=== PATIENT | female | born 1960 | race African-American/Black ===

== ENCOUNTER 2017-06-26 15:16 | Emergency (ER) | payer MEDICAID ==
[~2017-06-26] VITALS: Ht 160 cm; Wt 73.5 kg
[2017-06-26 15:42] VITALS: BP 138/89
[2017-06-26] MEDS ORDERED: Promethazine/Codeine 5ml UD ORAL ONE (16:00)
[2017-06-26] MEDS ORDERED: Albuterol ud Inhalation HHN SCH (16:00)
[2017-06-26] MEDS ORDERED: Ipratropium 0.02% Inh Soln 2.5ml UD HHN ONE (16:00)
--- NOTE | 2017-06-26 17:42 | Emergency Room Report ---
History of Present Illness General Chief Complaint: Skin Rash/Abscess Source: Patient Present Illness HPI 56-year-old female presents to the emergency department complaining of productive cough x3 days with exacerbation of her asthma. Patient also reports painful non-itchy rash under both breasts very patient denies fevers she reports chills. Denies sore throat, ear pain, high fevers, lethargy, neck pain/ stiffness, irritability, photophobia dehydration, N/V/D. Denies Cp, Palpitations , LOC, AMS, seizures, paresthesias, or changes in Hearing or vision, no Sudden severe ELIZABETH. Denies lesions/rashes elsewhere on the body. Denies new medications or body washes or creams. Denies swelling of the lips, tongue , throat or airway. Denies wheezing, or shortness of breath. Denies recent travel, recent illness or ill contacts. denies blisters, oral lesions, or sloughing of the skin. did not receive flu vaccination this year. Allergies: Coded Allergies: No Known Allergies (Unverified , 06/26/17) Patient History Past Medical History: see triage record, asthma Past Surgical History: none Pertinent Family History: none Now: No Reviewed Nursing Documentation: PMH: Agreed, PSxH: Agreed Nursing Documentation-PMH Past Medical History: No History, Except For Hx Hypertension: Yes Hx Asthma: Yes Hx Diabetes: Yes Review of Systems All Other Systems: negative except mentioned in HPI Physical Exam Vital Signs Date Time Temp Pulse Resp B/P (MAP) Pulse Ox O2 Delivery O2 Flow Rate FiO2 06/26/17 15:32 99.0 87 18 138/89 97 Room Air 06/26/17 15:55 21 Sp02 EP Interpretation: reviewed, normal General Appearance: alert, GCS 15, non-toxic, mild distress Head: normocephalic, atraumatic ENT: hearing grossly normal, normal voice Neck: full range of motion Respiratory: chest non-tender, no respiratory distress, no accessory muscle use , speaking full sentences, wheezing Cardiovascular #1: regular rate, rhythm, normal capillary refill Musculoskeletal: back normal, gait/station normal, normal range of motion, non- tender Neurologic: alert, oriented x3, responsive, motor strength/tone normal, sensory intact, speech normal, grossly normal Psychiatric: judgement/insight normal Skin: normal color, warm/dry, well hydrated, rash - + RASH UNDER BREASTS: macerated in appearance with mild erythema. no blisters or vesicles. Lymphatic: no adenopathy Medical Decision Making PA Attestation Dr. cuello is my supervising Physician whom patient management has been discussed with. Diagnostic Impression: Primary Impression: Atypical pneumonia Additional Impression: Rash and nonspecific skin eruption ER Course 56-year-old female presents to the emergency department complaining of productive cough x3 days with exacerbation of her asthma. Patient also reports painful non-itchy rash under both breasts very patient denies fevers she reports chills. Denies sore throat, ear pain, high fevers, lethargy, neck pain/ stiffness, irritability, photophobia dehydration, N/V/D. Denies Cp, Palpitations , LOC, AMS, seizures, paresthesias, or changes in Hearing or vision, no Sudden severe ELIZABETH. Denies lesions/rashes elsewhere on the body. Denies new medications or body washes or creams. Denies swelling of the lips, tongue , throat or airway. Denies wheezing, or shortness of breath. Denies recent travel, recent illness or ill contacts. denies blisters, oral lesions, or sloughing of the skin. did not receive flu vaccination this year. Ddx considered but are not limited to URI, pneumonia, PE, strep pharyngitis, meningitis. Vital signs: Pt. is afebrile, the remaining VS are WNL H&PE are most consistent with URI in the presence of reactive airway and asthma exacerbation. evidence of bacterial infection at this time. + RASH UNDER BREASTS: macerated in appearance with mild erythema. no blisters or vesicles. ORDERS: none required at this time, the diagnosis is clinical ED INTERVENTIONS: -Albuterol Nebs x3 -Atrovent Neb x 1 -Cough Syrup DISCHARGE: At this time pt. is stable for d/c to home. Will provide printed patient care instructions, and any necessary prescriptions. Care plan and follow up instructions have been discussed with the patient prior to discharge. Last Vital Signs Date Time Temp Pulse Resp B/P (MAP) Pulse Ox O2 Delivery O2 Flow Rate FiO2 06/26/17 16:04 91 24 100 Room Air 21 06/26/17 15:42 99.0 138/89 Disposition: HOME, SELF-CARE Condition: Stable Scripts Guaifenesin (Guaifenesin) 1,200 Mg Tab.er.12h 1200 MG PO BID, #20 TAB Prov: Nicole Gunn 06/26/17 Codeine/Promethazine Hcl* (PROMETHAZINE-CODEINE SYRUP*) 118 Ml Syrup 5 ML ORAL Q6H Y for For Cough, #120 ML 0 Refills Prov: Nicole Gunn 06/26/17 Mupirocin Calcium (Bactroban) 15 Gm Cream..g. 1 APPLIC TOPIC THREE TIMES A DAY, #15 GM Prov: Nicole Gunn 06/26/17 Nystatin* (NYSTATIN*) 15 Gm Cream..g. 1 APPLIC TOPIC THREE TIMES A DAY, #15 GM Prov: Nicole Gunn 06/26/17 Ipratropium Jordan (ATROVENT HFA) 12.9 Gm Hfa.aer.ad 1 SPR IH Q6HR, #12.9 GM Prov: Nicole Gunn 06/26/17 Albuterol Sulfate* (ALBUTEROL SULFATE HHN*) 2.5 Mg/3 Ml Vial.neb 3 ML INH Q4H Y for Shortness of Breath, #30 EA Prov: Nicole Gunn 06/26/17 Patient Instructions: Acute Bronchitis, Knkk-[id number], Rash Additional Instructions: Take medications as directed. Follow up with a Primary Care Provider in 3-5 days, even if your symptoms have resolved. --Please review list of primary care clinics, if you do not already have a primary care provider Return sooner to ED if new symptoms occur, or current symptoms become worse. Do not drink alcohol, drive, or operate heavy machinery while taking Cough Syrup as this may cause drowsiness. - Please note that this Emergency Department Report was dictated using Bulbcement mixer technology software, occasionally this can lead to erroneous entry secondary to interpretation by the dictation equipment. Nicole Gunn Jun 26, 2017 17:42
[2017-06-26] MEDS ORDERED: PROMETHAZINE-C118 M1 ORAL (17:46)
[2017-06-26] MEDS ORDERED: NYSTATIN15 GM TOPIC (17:46)
[2017-06-26] MEDS ORDERED: GUAIFENESIN1200 MG PO (17:46)
[2017-06-26] MEDS ORDERED: ATROVENT HFA12.9 GM IH (17:46)
[2017-06-26] MEDS ORDERED: ALBUTEROL2.5 MG/3 M INH (17:46)
[2017-06-26] MEDS ORDERED: BACTROBAN CR1 APPLIC TOPIC (17:46)
[2017-06-26 18:00] VITALS: BP 138/89
[2017-06-27] MEDS ORDERED: ALBUTEROL SULF8.5 GM INH (15:20)
== END 2017-06-26 18:19 | disposition home or self-care (01) ==
LOC: EMR 18:02
DX: J18.9 Pneumonia, unspecified organism (principal); R21 Rash and other nonspecific skin eruption; E11.9 Type 2 diabetes mellitus without complications; I10 Essential (primary) hypertension; J45.909 Unspecified asthma, uncomplicated
CPT/HCPCS: 94640; 94664; 99284

== ENCOUNTER 2017-11-30 00:06 | Emergency (ER) | payer MEDICAID ==
[~2017-11-30] VITALS: Ht 160 cm; Wt 72.6 kg
[~2017-11-30 00:06] MED LIST: ALBUTEROL SULF8.5 GM INH; ALBUTEROL2.5 MG/3 M INH; ATROVENT HFA12.9 GM IH; BACTROBAN CR1 APPLIC TOPIC; GUAIFENESIN1200 MG PO; NYSTATIN15 GM TOPIC; PROMETHAZINE-C118 M1 ORAL
[2017-11-30 00:23] VITALS: BP 98/76
[2017-11-30] MEDS ORDERED: Ipratropium 0.02% Inh Soln 2.5ml UD HHN ONE ×2 (00:30→03:00)
[2017-11-30] MEDS ORDERED: Albuterol ud Inhalation HHN ONE ×2 (00:30→03:00)
--- NOTE | 2017-11-30 00:40 | Emergency Room Report ---
History of Present Illness General Chief Complaint: Asthma Source: Patient Present Illness HPI Patient presents with complaints of shortness of breath and cough Reports that she was recently seen by her primary physician for flulike symptoms As the cough has persisted she had been using her inhaler however is not having significant improvement Denies any chest pain she does have some shortness of breath increased with cough denies any pleurisy Denies any recent travel Allergies: Coded Allergies: No Known Allergies (Unverified , 06/26/17) Patient History Past Medical History: see triage record Pertinent Family History: none Last Menstrual Period: n/a Reviewed Nursing Documentation: PMH: Agreed; PSxH: Agreed Nursing Documentation-PMH Past Medical History: No History, Except For Hx Hypertension: Yes Hx Asthma: Yes Hx Diabetes: Yes Review of Systems All Other Systems: negative except mentioned in HPI Physical Exam Vital Signs Date Time Temp Pulse Resp B/P (MAP) Pulse Ox O2 Delivery O2 Flow Rate FiO2 11/30/17 00:18 97.9 93 16 98/76 100 Room Air 97.9 Sp02 EP Interpretation: reviewed, normal General Appearance: no apparent distress Head: normocephalic, atraumatic Eyes: bilateral eye PERRL, bilateral eye EOMI ENT: hearing grossly normal, normal pharynx, TMs + canals normal, uvula midline Neck: full range of motion, supple, no meningismus, no bony tend Respiratory: no respiratory distress, no retraction, no accessory muscle use, wheezing - Both lower lobes Cardiovascular #1: normal peripheral pulses, regular rate, rhythm, no edema, no gallop, no JVD, no murmur Gastrointestinal: normal bowel sounds, non tender, soft, no mass, no organomegaly, non-distended, no guarding, no hernia, no pulsatile mass, no rebound Genitourinary: no CVA tenderness Musculoskeletal: normal inspection Neurologic: oriented x3, responsive, skip load driver III-XII nml as tested, motor strength/ tone normal, sensory intact Psychiatric: mood/affect normal Skin: normal color, no rash, warm/dry, palpation normal Lymphatic: normal inspection, no adenopathy Medical Decision Making Diagnostic Impression: Primary Impression: Pneumonia Additional Impression: Asthma attack ER Course Patient has clinical symptoms and signs consistent with atypical pneumonia X-ray had shown some increased right-sided perihilar fullness She has done significantly better with breathing treatment At this time placed on Levaquin On repeat evaluation remains hemodynamically stable and appropriate for initial conservative outpatient trial Chest X-Ray Diagnostic Results Chest X-Ray Diagnostic Results : Chest X-Ray Ordered: Yes # of Views/Limited/Complete: 1 View Indication: Shortness of Breath EP Interpretation: Yes Interpretation: no effusion, no pneumothorax, other - Right-sided Parahilar fullness Impression: Other - Right-sided perihilar fullness possible rotation Electronically Signed by: Ochoa Harris DO Last Vital Signs Date Time Temp Pulse Resp B/P (MAP) Pulse Ox O2 Delivery O2 Flow Rate FiO2 11/30/17 00:23 97.9 91 19 98/76 100 Room Air 97.9 Status: improved Disposition: HOME, SELF-CARE Condition: Improved Scripts Dextromethorphan Hb/Doxylamine (ROBITUSSIN NIGHTTIME COUGH DM) 237 Ml Liquid 10 ML PO QHS for 7 Days, ML Prov: Ochoa Harris DO 11/30/17 Albuterol Sulfate* (ALBUTEROL SULFATE MDI*) 8.5 Gm Hfa.aer.ad 2 PUFF INH Q6H, #1 EA 0 Refills Prov: Ochoa Harris DO 11/30/17 Levofloxacin* (LEVAQUIN*) 750 Mg Tablet 750 MG ORAL DAILY for 7 Days, TAB Prov: Ochoa Harris DO 11/30/17 Additional Instructions: Patient is provided with the discharge instructions notified to follow up with primary doctor in the next 2-3 days otherwise return to the er with any worsening symptoms. Please note that this report is being documented using Speak[employer] technology. This can lead to erroneous entry secondary to incorrect interpretation by the dictating instrument. Ochoa Harris DO Nov 30, 2017 00:40
[2017-11-30] MEDS ORDERED: Albuterol ud Inhalation ONE (00:43)
[2017-11-30] MEDS ORDERED: Promethazine/Codeine 5ml UD ORAL ONE (00:45)
[2017-11-30] MEDS ORDERED: ALBUTEROL SULF8.5 GM INH (03:29)
[2017-11-30] MEDS ORDERED: LEVAQUIN750 MG ORAL (03:29)
[2017-11-30 03:35] VITALS: BP 154/79
[2017-11-30] MEDS ORDERED: ROBITUSSIN NIG237 ML PO (03:41)
[2017-11-30 03:43] VITALS: BP 154/79
--- NOTE | 2017-11-30 11:35 | Diagnostic Imaging Report ---
Indication: Dyspnea Comparison: None A single view chest radiograph was obtained. Findings: Cardiomediastinal appearance is within normal limits for age. Pulmonary vascularity is appropriate. The diaphragmatic contour is smooth and costophrenic angles are sharp. No pleural effusions are identified. The bones are unremarkable. Impression: No acute findings
== END 2017-11-30 03:43 | disposition home or self-care (01) ==
LOC: EMR 00:37
DX: J18.9 Pneumonia, unspecified organism (principal); J45.909 Unspecified asthma, uncomplicated; I10 Essential (primary) hypertension; E11.9 Type 2 diabetes mellitus without complications
CPT/HCPCS: 71045; 94640; 94664; 99284; J7512

== ENCOUNTER 2018-05-30 15:20 | Emergency (ER) | payer MEDICAID ==
[~2018-05-30] VITALS: Ht 160 cm; Wt 72.6 kg
[~2018-05-30 15:20] MED LIST changes: +LEVAQUIN750 MG ORAL; +ROBITUSSIN NIG237 ML PO
--- NOTE | 2018-05-30 15:36 | NUR ---
ED Nurse Note: Pt came here w/ complaints of 10/10 neck pain. Non radiating. A + O x4. Skin warm to touch. Pt also noted to have a mass on the right rib cage area x 2 weeks. Hx of asthma.
[2018-05-30] MEDS ORDERED: Albuterol/Ipratropium 3ml neb HHN ONE (15:45)
--- NOTE | 2018-05-30 15:46 | Emergency Room Report ---
History of Present Illness General Chief Complaint: General Complaint Source: Patient Present Illness HPI 57-year-old female patient presents the ER with multiple complaints for the past week. Patient reports history of asthma, states difficulty breathing. Reports history of smoking. Denies chest pain. Reports right-sided rib pain. Denies acute injury or trauma. Denies history of heart attack or stroke. Denies fever. Reports small bump on right side of back, states is been present for a month. Reports painful. Denies drainage. Denies other acute aggravating or relieving factors. Also reports headache and sinus pain. Denies history of migraine. Reports worst headache of life. Reports feeling a "crick in neck". Denies acute injury or trauma. Reports "I think I slept weird ". Denies fever, chest pain. Denies tinnitus, vertigo. Denies vomiting or vision changes. denies recent travel. Allergies: Coded Allergies: No Known Allergies (Unverified , 06/26/17) Patient History Past Medical History: see triage record Last Menstrual Period: 2 YEARS AGO Now: No Reviewed Nursing Documentation: PMH: Agreed; PSxH: Agreed Nursing Documentation-PMH Past Medical History: No History, Except For Hx Hypertension: Yes Hx Asthma: Yes Hx Diabetes: Yes Review of Systems All Other Systems: negative except mentioned in HPI Physical Exam Vital Signs Date Time Temp Pulse Resp B/P (MAP) Pulse Ox O2 Delivery O2 Flow Rate FiO2 05/30/18 15:22 98.2 83 14 131/93 98 Sp02 EP Interpretation: reviewed, normal General Appearance: well appearing, no apparent distress, alert, GCS 15, non- toxic Head: normocephalic, atraumatic, other - no TTP over maxillary or frontal sinuses, no TTP over temporal artery Eyes: bilateral eye normal inspection, bilateral eye PERRL, bilateral eye EOMI ENT: hearing grossly normal, normal pharynx, no angioedema, normal voice, TMs + canals normal, uvula midline, moist mucus membranes Neck: full range of motion, no meningismus, no bony tend Respiratory: lungs clear, no rhonchi, no respiratory distress, no accessory muscle use, no wheezing, decreased breath sounds, speaking full sentences, other - Chest tender to palpation, no flail chest, no stridor, no defomrity, chest symmetrical Cardiovascular #1: regular rate, rhythm, no edema Gastrointestinal: non tender, soft, no mass, non-distended, no guarding, no rebound Genitourinary: no CVA tenderness Musculoskeletal: back normal, digits/nails normal, gait/station normal, normal range of motion, non-tender Neurologic: alert, oriented x3, responsive, director sales and trade marketing III-XII nml as tested, motor strength/tone normal, sensory intact, cerebellar normal, normal gait, speech normal, other - negative Kernig, negative Brudzinski Psychiatric: mood/affect normal Skin: no rash, other - No palpable mass, no erythema or edema Medical Decision Making PA Attestation Dr. Lucero is my supervising Physician whom patient management has been discussed with. Diagnostic Impression: Primary Impression: Asthma exacerbation Additional Impressions: Neck strain Headache ER Course Pt presents to ED c/o breathing difficulty, headache, neck pain. DDX considered but are not limited to asthma, viral URI, influenza, bronchitis, pneumonia, ICH, SAH, meningitis, sprain, strain, migraine, sinusitis, tension ELIZABETH , cluster ELIZABETH, temporal arteritis. Negative Kernig, negative Brudzinski, afebrile, low suspicion for meningitis. Low suspicion for PE per Well's criteria. VITAL SIGNS are WNL, patient is afebrile. Ordered breathing treatment and medication. ER COURSE Patient provided with prednisone Duoneb breathing treatment provided. Following treatment patient states no longer having difficulty with breathing. Patient is resting comfortably in no acute distress. Full ROM of neck, no meningismus, no TTP, no acute trauma, does not require xray , low suspicion for fracture. Likely muscular, will provide patient with muscle relaxant. Provided with lidocaine patch in the ER. Advised on rest, ice and heat. Followup with PCP for further treatment and referral. No palpable mass or cyst. No signs of infection. No fluctuance or induration, no signs of abscess, instructed patient to followup with PCP for further evaluation and treatment. CXR negative for acute disease, no signs of consolidation, does not require abx. will provide patient with cough medication at discharge. No rib deformity , no TPT, likely rib pain secondary to cough, advised to rest and take Tylenol for pain. CT head negative for acute disease. Provided with Ultram. Patient has family member driving home. Patient reports symptoms improved prior to discharge. Patient would not benefit from Tamiflu, symptoms present for greater than 3 days. Advised on rest, plenty of fluids, and Tylenol for pain symptoms. ER precautions given. DISCHARGE: -Rx given for Prednisone. -Rx provided for Albuterol MDI. -Rx provided for Tessalon Perles Rx provided for tylneol Rx provided for Robaxin At this time pt is stable for d/c to home. Patient is resting comfortably in no acute distress, nontoxic appearing, able to answer questions without difficulty. Patient to take medications as instructed Will provide with patient care instructions and any necessary prescriptions. Care plan and follow-up instructions provided. Patient instructed to follow-up with primary care provider in 3 - 5 days. Patient questions asked and answered. Patient reports understanding and agreement to treatment plan. ER precautions given. Patient instructed to return to ER immediately for any new or worsening of symptoms including but not limited to increasing SOB, persistent fever. - Please note that this Emergency Department Report was dictated using Alegríaaccounting consultant technology software, occasionally this can lead to erroneous entry secondary to interpretation by the dictation equipment. Chest X-Ray Diagnostic Results Chest X-Ray Diagnostic Results : Chest X-Ray Ordered: Yes # of Views/Limited/Complete: 1 View Indication: Chest Pain EP Interpretation: Yes PA Xray: Interpretation reviewed, by supervising MD, and agrees with findings. Interpretation: no consolidation, no effusion, no pneumothorax, no acute cardiopulmonary disease Impression: No acute disease GEE Irving PA-C CT/MRI/US Diagnostic Results CT/MRI/US Diagnostic Results : Imaging Test Ordered: CT head Impression negative Last Vital Signs Date Time Temp Pulse Resp B/P (MAP) Pulse Ox O2 Delivery O2 Flow Rate FiO2 05/30/18 15:22 98.2 83 14 131/93 98 Status: improved Disposition: HOME, SELF-CARE Condition: Stable Scripts Prednisone* (PREDNISONE*) 20 Mg Tablet 40 MG ORAL DAILY for 4 Days, #8 TAB Prov: Bonifacio Irving.A. 05/30/18 Albuterol Sulfate* (ALBUTEROL SULFATE MDI*) 8.5 Gm Hfa.aer.ad 2 PUFF INH Q6H, #1 INH 0 Refills Prov: Bonifacio Irving.A. 05/30/18 Methocarbamol* (ROBAXIN*) 500 Mg Tablet 500 MG PO TID, #21 TAB 0 Refills Prov: Bonifacio Irving.A. 05/30/18 Acetaminophen* (TYLENOL EXTRA STRENGTH*) 500 Mg Tablet 500 MG ORAL Q8H PRN for Prn Headache/Temp > 101, #30 TAB 0 Refills Prov: Bonifacio Irving 05/30/18 Benzonatate* (TESSALON PERLE*) 100 Mg Capsule 100 MG ORAL THREE TIMES A DAY, #15 PERLE Prov: Bonifacio Irving 05/30/18 Patient Instructions: Asthma Attack Prevention, Asthma, Acute Bronchospasm, General Headache Without Cause, [id number], Migraine Headache, [id number] Additional Instructions: Followup with primary care provider in 3 -5 days. Take medications as directed. Patient questions asked and answered. ER precautions given, patient instructed to return to ER immediately for any new or worsening of symptoms. Bonifacio Irving May 30, 2018 15:46
--- NOTE | 2018-05-30 15:59 | NUR ---
ED Nurse Note: RT currently giving breathing tx to pt.
--- NOTE | 2018-05-30 16:36 | NUR ---
ED Nurse Note: Pt went down to CT.
--- NOTE | 2018-05-30 16:39 | Diagnostic Imaging Report ---
Indication: Chest pain Technique: One view of the chest Comparison: 11/30/2017 Findings: No acute infiltrates, effusions, or congestion. Tortuous calcified aorta. Normal heart size. Upper mediastinum unremarkable. No significant interim change Impression: No acute process.
[2018-05-30 16:40] VITALS: BP 130/90
--- NOTE | 2018-05-30 16:44 | NUR ---
ED Nurse Note: Pt came back from CT.
--- NOTE | 2018-05-30 16:55 | Diagnostic Imaging Report ---
Indications: Head pain and sinus pain Technique: Spiral acquisitions obtained through the brain. Angled axial and coronal 5 x 5 mm slices were reconstructed. Total dose length product 1298.67 mGycm. CTDI vol(s) 70.38 mGy. Dose reduction achieved using automated exposure control Comparison: 07/23/2009 Findings: No acute intracranial hemorrhage or edema. No mass effect. No midline shift. Normal mortensen-white differentiation. Normal-sized ventricles and extra axial CSF spaces. Intact calvarium. The mastoids are clear. The sinuses are clear. No significant interim change Impression: Negative The CT scanner at [facility] is accredited by the [employer] and the scans are performed using protocols designed to limit radiation exposure to as low as reasonably achievable to attain images of sufficient resolution adequate for diagnostic evaluation.
[2018-05-30] MEDS ORDERED: TESSALON PERLE100 MG ORAL (16:59)
[2018-05-30] MEDS ORDERED: TAMIFLU75 MG ORAL (16:59)
[2018-05-30] MEDS ORDERED: TYLENOL EXTRA500 MG ORAL (16:59)
[2018-05-30] MEDS ORDERED: traMADol 50mg tab ORAL ONE (17:15)
[2018-05-30] MEDS ORDERED: ALBUTEROL SULF8.5 GM INH (17:24)
[2018-05-30] MEDS ORDERED: ROBAXIN500 MG PO (17:24)
[2018-05-30] MEDS ORDERED: PREDNISONE20 MG ORAL (17:24)
[2018-05-30 17:30] VITALS: BP 130/90
--- NOTE | 2018-05-30 17:30 | NUR ---
ED Nurse Note: Pt is clear to be discharged by ERMD. Discharge paper and prescription given, pt verbalized understanding of discharge instruction. Aox4, VSS. Wristband removed. Pt ambulated out with steady gait with all belongings.
== END 2018-05-30 17:30 | disposition home or self-care (01) ==
LOC: EMR 17:30
DX: J45.901 Unspecified asthma with (acute) exacerbation (principal); S16.1XXA Strain of muscle, fascia and tendon at neck level, initial encounter; X58.XXXA Exposure to other specified factors, initial encounter; Y92.9 Unspecified place or not applicable; R51 Headache; E11.9 Type 2 diabetes mellitus without complications; I10 Essential (primary) hypertension
CPT/HCPCS: 70450; 71045; 94640; 99284; J7512; J7620

== ENCOUNTER 2018-06-20 10:16 | Emergency (ER) | payer MEDICAID ==
[~2018-06-20] VITALS: Ht 160 cm; Wt 69.9 kg
[~2018-06-20 10:16] MED LIST changes: +PREDNISONE20 MG ORAL; +ROBAXIN500 MG PO; +TAMIFLU75 MG ORAL; +TESSALON PERLE100 MG ORAL; +TYLENOL EXTRA500 MG ORAL
--- NOTE | 2018-06-20 10:25 | NUR ---
ED Nurse Note: Pt came into the ER w/ complaints of asthma excaberation since Monday. Pt is having SOB upon speaking but sating at 100% on room air at bedside. Noted to have dry cough and smell of smoke coughin gfrom pt. Complaining of 7/10 bilateral rib pain due to coughing. A + O x4. Ambulatory. Skin warm to touch. Hx of asthma, HTN, DM.
[2018-06-20 10:28] VITALS: BP 148/89
--- NOTE | 2018-06-20 10:44 | NUR ---
ED Nurse Note: RT at the bedside to give breathing tx.
[2018-06-20] MEDS: Albuterol ud Inhalation HHN SCH ×6 (10:46→13:08)
[2018-06-20] MEDS: Ipratropium 0.02% Inh Soln 2.5ml UD HHN SCH ×6 (10:46→13:08)
--- NOTE | 2018-06-20 12:28 | NUR ---
ED Nurse Note: Xray at the bedside.
[2018-06-20] MEDS ORDERED: Promethazine/Codeine 5ml UD ORAL ONE (12:30)
--- NOTE | 2018-06-20 12:46 | Diagnostic Imaging Report ---
Indication: Dyspnea Comparison: 05/30/2018 A single view chest radiograph was obtained. Findings: Cardiomediastinal appearance is within normal limits for age. The lungs are clear. Pulmonary vascularity is appropriate. The diaphragmatic contour is smooth and costophrenic angles are sharp. No pleural effusions are identified. The bones are unremarkable. Impression: No acute findings
--- NOTE | 2018-06-20 12:54 | NUR ---
ED Nurse Note: RT at the bedside.
[2018-06-20 13:02] LABS: BASOPHILS % (AUTO) 0.4 % (0.0-2.0); EOSINOPHILS % (AUTO) 0.2 % (0.0-3.0); HEMATOCRIT 40.5 % (37.0-47.0); HEMOGLOBIN 13.1 G/DL (12.0-16.0); LYMPHOCYTES % (AUTO) 16.3 % (20.0-45.0); MEAN CORPUSCULAR VOLUME 97 FL (80-99); MONOCYTES % (AUTO) 3.5 % (1.0-10.0); NEUTROPHILS % (AUTO) 79.7 % (45.0-75.0); PLATELET COUNT 210 K/UL (150-450); RED BLOOD COUNT 4.17 M/UL (4.20-5.40); RED CELL DISTRIBUTION WIDTH 12.8 % (11.6-14.8); WHITE BLOOD COUNT 5.8 K/UL (4.8-10.8)
[2018-06-20 13:15] LABS: APPEARANCE,URINE CLEAR; BILIRUBIN, URINE NEGATIVE (NEGATIVE); COLOR,URINE PALE YELLOW; GLUCOSE, URINE (UA) 4+ (NEGATIVE); KETONES,URINE NEGATIVE (NEGATIVE); LEUKOCYTE ESTERASE ,URINE NEGATIVE (NEGATIVE); NITRITE,URINE NEGATIVE (NEGATIVE); PH,URINE 6 (4.5-8.0); PROTEIN,URINE NEGATIVE (NEGATIVE); UROBILINOGEN,URINE NORMAL MG/DL (0.0-1.0)
[2018-06-20 14:01] VITALS: BP 103/75
[2018-06-20 14:09] LABS: ANION GAP 16 mmol/L (5-15); BLOOD UREA NITROGEN 10 mg/dL (7-18); CALCIUM 9.6 MG/DL (8.5-10.1); CARBON DIOXIDE 21 MMOL/L (21-32); CHLORIDE 100 MMOL/L (98-107); CREATININE 0.9 MG/DL (0.55-1.30); POTASSIUM 3.6 MMOL/L (3.5-5.1); SODIUM 137 MMOL/L (136-145)
[2018-06-20 14:14] LABS: ALANINE AMINOTRANSFERASE 24 U/L (12-78); ALBUMIN/GLOBULIN RATIO 1.2 (1.0-2.7); ALKALINE PHOSPHATASE 132 U/L (46-116); ASPARTATE AMINO TRANSFERASE 15 U/L (15-37); BILIRUBIN,TOTAL 0.3 MG/DL (0.2-1.0)
[2018-06-20] MEDS ORDERED: AMOXICILLIN500 MG ORAL (14:41)
[2018-06-20] MEDS ORDERED: PREDNISONE20 MG ORAL (14:41)
[2018-06-20] MEDS ORDERED: ALBUTEROL SULF8.5 GM INH (14:41)
[2018-06-20] MEDS ORDERED: PROMETHAZINE-C118 M1 ORAL (14:41)
[2018-06-20 14:57] VITALS: BP 116/54
--- NOTE | 2018-06-20 14:58 | NUR ---
ED Nurse Note: Pt was supposed to be transferred but decided to go AMA. AMA papers signed by pt and ERMD. Discharge instructions given to pt. Verbalized understanding. Answered all questions. ID band and IV site removed. Left ER w/ all belongings and w/ a steady gait.
--- NOTE | 2018-06-20 15:54 | Emergency Room Report ---
History of Present Illness General Chief Complaint: Asthma Source: Patient Present Illness HPI 57-year-old female presents ED for evaluation. Complaining of cough and shortness of breath 4 days. History of asthma. She does not have an inhaler at this time. Cough is dry. States she does smoke. Denies fevers or chills. Denies chest pain. Denies sick contacts or recent travel. No other aggravating relieving factors. Denies any other associated symptoms Allergies: Coded Allergies: No Known Allergies (Unverified , 06/26/17) Patient History Past Medical History: DM, HTN, asthma Past Surgical History: none Pertinent Family History: none Social History: Reports: smoking; Denies: alcohol use, drug use Now: No Immunizations: UTD Reviewed Nursing Documentation: PMH: Agreed; PSxH: Agreed Nursing Documentation-PMH Past Medical History: No History, Except For Hx Hypertension: Yes Hx Asthma: Yes Hx Diabetes: Yes Review of Systems All Other Systems: negative except mentioned in HPI Physical Exam Vital Signs Date Time Temp Pulse Resp B/P (MAP) Pulse Ox O2 Delivery O2 Flow Rate FiO2 06/20/18 10:25 97.2 10 25 148/89 100 Room Air 06/20/18 10:28 100 Sp02 EP Interpretation: reviewed, normal General Appearance: no apparent distress, alert, GCS 15, non-toxic Head: normocephalic, atraumatic Eyes: bilateral eye normal inspection, bilateral eye PERRL ENT: hearing grossly normal, normal pharynx, no angioedema, normal voice Neck: full range of motion, supple/symm/no masses Respiratory: chest non-tender, decreased breath sounds, speaking full sentences , wheezing Cardiovascular #1: regular rate, rhythm, no edema Cardiovascular #2: 2+ carotid (R), 2+ carotid (L), 2+ radial (R), 2+ radial (L) , 2+ dorsalis pedis (R), 2+ dorsalis pedis (L) Gastrointestinal: normal bowel sounds, non tender, soft, non-distended, no guarding, no rebound Rectal: deferred Genitourinary: normal inspection, no CVA tenderness Musculoskeletal: back normal, gait/station normal, normal range of motion, non- tender Neurologic: alert, oriented x3, responsive, motor strength/tone normal, sensory intact, speech normal Psychiatric: judgement/insight normal, memory normal, mood/affect normal, no suicidal/homicidal ideation Reflexes: 3+ bicep (R), 3+ bicep (L), 3+ tricep (R), 3+ tricep (L), 3+ knee (R) , 3+ knee (L) Skin: normal color, no rash, warm/dry, well hydrated Lymphatic: no adenopathy Medical Decision Making Diagnostic Impression: Primary Impression: Asthma attack Qualified Codes: J45.901 - Unspecified asthma with (acute) exacerbation Additional Impression: Hyperglycemia ER Course Hospital Course 57-year-old female presents to ED complaining of cough, wheezing Differential diagnoses include: URI, bronchitis, asthma/COPD, pneumonia Clinical course Patient placed on stretcher. After initial history, physical exam reveals middle aged female in no acute distress. Bilateral TM unremarkable. No pharyngeal erythema. No tonsillar exudates. No lymphadenopathy. Mild wheezing noted on exam, no signs of respiratory distress or retractions. Patient given Prednisone and albuterol/atrovent treatment in ED After multiple treatments patient remains short of breath, coughing profusely. I do not believe patient can be safely discharged home at this time Labs ordered, additional breathing treatments, magnesium ordered Chest x-ray shows no infiltrate. EKG - NSR, no acute ischemic changes interpreted by me Patient states that she does not want to stay in the hospital but does not feel better. Still coughing. Understands the risks of leaving. Patient has competency to make her own decisions. Signed AMA form. I will provide her with prescriptions regardless Diagnosis - asthma attack, hyperglycemia Patient left AMA. Given prescriptions for albuterol, prednisone, cough medication, amoxicillin. Follow-up with PMD. Return to ED if symptoms recur or worsen Labs Test 06/20/18 12:40 White Blood Count 5.8 K/UL (4.8-10.8) Red Blood Count 4.17 M/UL (4.20-5.40) Hemoglobin 13.1 G/DL (12.0-16.0) Hematocrit 40.5 % (37.0-47.0) Mean Corpuscular Volume 97 FL (80-99) Mean Corpuscular Hemoglobin 31.5 PG (27.0-31.0) Mean Corpuscular Hemoglobin Concent 32.4 G/DL (32.0-36.0) Red Cell Distribution Width 12.8 % (11.6-14.8) Platelet Count 210 K/UL (150-450) Mean Platelet Volume 8.1 FL (6.5-10.1) Neutrophils (%) (Auto) 79.7 % (45.0-75.0) Lymphocytes (%) (Auto) 16.3 % (20.0-45.0) Monocytes (%) (Auto) 3.5 % (1.0-10.0) Eosinophils (%) (Auto) 0.2 % (0.0-3.0) Basophils (%) (Auto) 0.4 % (0.0-2.0) Urine Color Pale yellow Urine Appearance Clear Urine pH 6 (4.5-8.0) Urine Specific [place] 1.010 (1.005-1.035) Urine Protein Negative (NEGATIVE) Urine Glucose (UA) 4+ (NEGATIVE) Urine Ketones Negative (NEGATIVE) Urine Blood Negative (NEGATIVE) Urine Nitrite Negative (NEGATIVE) Urine Bilirubin Negative (NEGATIVE) Urine Urobilinogen Normal MG/DL (0.0-1.0) Urine Leukocyte Esterase Negative (NEGATIVE) Sodium Level 137 MMOL/L (136-145) Potassium Level 3.6 MMOL/L (3.5-5.1) Chloride Level 100 MMOL/L (98-107) Carbon Dioxide Level 21 MMOL/L (21-32) Anion Gap 16 mmol/L (5-15) Blood Urea Nitrogen 10 mg/dL (7-18) Creatinine 0.9 MG/DL (0.55-1.30) Estimat Glomerular Filtration Rate > 60 mL/min (>60) Glucose Level 393 MG/DL (74-106) Calcium Level 9.6 MG/DL (8.5-10.1) Total Bilirubin 0.3 MG/DL (0.2-1.0) Aspartate Amino Transf (AST/SGOT) 15 U/L (15-37) Alanine Aminotransferase (ALT/SGPT) 24 U/L (12-78) Alkaline Phosphatase 132 U/L (46-116) Total Protein 7.3 G/DL (6.4-8.2) Albumin 4.0 G/DL (3.4-5.0) Globulin 3.3 g/dL Albumin/Globulin Ratio 1.2 (1.0-2.7) Chest X-Ray Diagnostic Results Chest X-Ray Diagnostic Results : Chest X-Ray Ordered: Yes # of Views/Limited/Complete: 1 View Indication: Shortness of Breath EP Interpretation: Yes Interpretation: no consolidation, no effusion, no pneumothorax, no acute cardiopulmonary disease Impression: No acute disease Electronically Signed by: Electronically signed by Farhat Lee MD Last Vital Signs Date Time Temp Pulse Resp B/P (MAP) Pulse Ox O2 Delivery O2 Flow Rate FiO2 06/20/18 14:57 98.0 114 21 116/54 100 Room Air 06/20/18 14:01 21 Status: unchanged Disposition: AGAINST MEDICAL ADVICE Condition: Serious Scripts Amoxicillin* (AMOXIL*) 500 Mg Capsule 500 MG ORAL THREE TIMES A DAY, #21 CAP Prov: Farhat Lee MD 06/20/18 Codeine/Promethazine Hcl* (PROMETHAZINE-CODEINE SYRUP*) 118 Ml Syrup 5 ML ORAL Q6H PRN for For Cough, #118 ML 0 Refills Prov: Farhat Lee MD 06/20/18 Albuterol Sulfate* (ALBUTEROL SULFATE MDI*) 8.5 Gm Hfa.aer.ad 2 PUFF INH Q6H, #1 EA 0 Refills Prov: Farhat Lee MD 06/20/18 Prednisone* (PREDNISONE*) 20 Mg Tablet 40 MG ORAL DAILY, #10 TAB Prov: Farhat Lee MD 06/20/18 Referrals: NON PHYSICIAN (PCP) Patient Instructions: Asthma, Adult Farhat Lee MD Jun 20, 2018 15:53
--- NOTE | 2018-06-21 15:10 | Cardiology Report ---
APPROVED REPORT EKG Measurement Heart [id number] Sinus tachycardia Otherwise normal ECG
== END 2018-06-20 14:59 | disposition left against medical advice (07) ==
LOC: EMR 10:50 → CANBEDREQ 14:27 → EMR 14:59
DX: J45.901 Unspecified asthma with (acute) exacerbation (principal); E11.65 Type 2 diabetes mellitus with hyperglycemia; I10 Essential (primary) hypertension; Z53.21 Procedure and treatment not carried out due to patient leaving prior to being seen by health care provider
CPT/HCPCS: 36415; 71045; 80053; 81003; 85025; 87040; 93005; 94640; 94664; 99284; J7040; J7512

== ENCOUNTER 2020-02-19 14:52 | Emergency (ER) | payer MEDICAID ==
[~2020-02-19] VITALS: Ht 160 cm; Wt 71.7 kg
[~2020-02-19 14:52] MED LIST changes: +AMOXICILLIN500 MG ORAL; +PROMETHAZI6.25 MG/1 ORAL; +VENTOLIN HFA18 GM INH; +ZITHROMAX250 MG ORAL
[2020-02-19 15:42] VITALS: BP 140/90
[2020-02-19] MEDS ORDERED: Ketorolac 30mg Inj IM ONE (15:45)
--- NOTE | 2020-02-19 16:19 | Diagnostic Imaging Report ---
Indications: Reason For Exam: TRAUMA Technique: Spiral images obtained through the facial bones. No IV contrast utilized. Multiplanar reconstructions were generated.Total dose length product 343 mGycm. CTDIvol(s) 15 mGy. Dose reduction achieved using automated exposure control Comparison: none Findings: No acute fracture demonstrated. No worrisome sinus air-fluid levels. There is minimal left posterior ethmoid sinus disease. The optic globes and retroseptal orbits are unremarkable. The dentition is intact. The nasal septum is midline. The included cervical spine is unremarkable. Impression: No acute process Minimal sinus disease The CT scanner at [facility] is accredited by the [employer] and the scans are performed using protocols designed to limit radiation exposure to as low as reasonably achievable to attain images of sufficient resolution adequate for diagnostic evaluation.
--- NOTE | 2020-02-19 16:21 | Diagnostic Imaging Report ---
Indication: Reason For Exam: TRAUMA Technique: Spiral acquisitions obtained through the cervical spine. No IV contrast utilized. Multiplanar reconstructions were generated. Total dose length product 480 mGycm. CTDIvol(s) 20 mGy. Dose reduction achieved using automated exposure control. Comparison: 07/23/2009 Findings: Bony alignment is normal. Vertebral body heights are preserved. There is degenerative disc narrowing at C4-5. The remaining disc spaces are preserved. No acute fractures. No dislocations. At C2-3, there is mild narrowing of the left neural foramen due to uncinate hypertrophy. No significant disc bulge or protrusion or spinal stenosis. At C3-4, there is mild to moderate right, mild left neural foraminal narrowing. No significant disc bulge or protrusion or spinal stenosis. At C4-5, there is mild bilateral facet arthrosis. There is severe bilateral neural foraminal stenosis. No significant disc bulge or protrusion or spinal stenosis. At C5-6, there is mild left neural foraminal stenosis. There is facet arthrosis. At the remaining levels, no significant disc bulge or protrusion, spinal stenosis, or neural foraminal stenosis. There is facet arthrosis of the lower segments. The included extraspinal soft tissues are unremarkable. There are small peripheral bullae in the right lung apex. No significant interim change Impression: No acute bony trauma Degenerative changes, as detailed on a level by level basis above Incidental finding of right lung bullous changes The CT scanner at [facility] is accredited by the [employer] and the scans are performed using protocols designed to limit radiation exposure to as low as reasonably achievable to attain images of sufficient resolution adequate for diagnostic evaluation.
--- NOTE | 2020-02-19 16:23 | Diagnostic Imaging Report ---
Indications: Head trauma Technique: Spiral acquisitions obtained through the brain. Angled axial and coronal 5 x 5 mm slices were reconstructed. Total dose length product 990 mGycm. CTDI vol(s) 53 mGy. Dose reduction achieved using automated exposure control Comparison: 06/09/2018 Findings: No acute intracranial hemorrhage or edema. No mass effect nor midline shift. Normal mortensen-white differentiation. Normal size ventricles and extra axial CSF spaces. The calvarium is intact. The mastoids are clear. There is minimal left ethmoid sinus disease. Impression: Essentially unremarkable. Negative for acute intracranial bleed or mass effect Minimal left ethmoid sinus disease The CT scanner at [facility] is accredited by the [employer] and the scans are performed using protocols designed to limit radiation exposure to as low as reasonably achievable to attain images of sufficient resolution adequate for diagnostic evaluation.
[2020-02-19] MEDS ORDERED: Tylenol #3 tab (300mg/30mg) ORAL ONE (16:30)
--- NOTE | 2020-02-19 17:13 | Diagnostic Imaging Report ---
Indication: Reason For Exam: PAIN Technique: Noncontrast spiral acquisitions obtained through the bilateral hips. Multiplanar reconstructions were generated. Total dose length product 324 mGycm. CTDIvol(s) 8 mGy. Radiation dose was minimized using automated exposure control Comparison: none Findings: No acute fractures. No dislocations. Very slight increased attenuation of the subcutaneous fat of the hip regions bilaterally, left greater than right, as well as slight skin thickening on the left. Included pelvic viscera demonstrate colonic diverticulosis. The uterus is somewhat enlarged and contains calcifications. Impression: No acute bony trauma Slight increased attenuation of the bilateral hip region subcutaneous fat, could indicate mild contusions given stated clinical history Colonic diverticulosis The CT scanner at [facility] is accredited by the [employer] and the scans are performed using protocols designed to limit radiation exposure to as low as reasonably achievable to attain images of sufficient resolution adequate for diagnostic evaluation.
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
[2020-02-19] MEDS ORDERED: ROBAXIN-500MG ORAL (17:24)
[2020-02-19 17:32] VITALS: BP 144/86
[2020-02-19 17:36] VITALS: BP 144/86
== END 2020-02-19 17:37 | disposition home or self-care (01) ==
LOC: EMR 15:15
DX: S00.83XA Contusion of other part of head, initial encounter (principal); S70.02XA Contusion of left hip, initial encounter; S16.1XXA Strain of muscle, fascia and tendon at neck level, initial encounter; G89.29 Other chronic pain; K57.90 Diverticulosis of intestine, part unspecified, without perforation or abscess without bleeding; I10 Essential (primary) hypertension; E78.00 Pure hypercholesterolemia, unspecified; J45.909 Unspecified asthma, uncomplicated; E11.9 Type 2 diabetes mellitus without complications; W22.8XXA Striking against or struck by other objects, initial encounter; Y93.9 Activity, unspecified; Y92.9 Unspecified place or not applicable; Z79.891 Long term (current) use of opiate analgesic; Z79.899 Other long term (current) drug therapy
CPT/HCPCS: 70450; 70486; 72125; 73700; Z7502; 99284; J2405

== ENCOUNTER 2020-03-07 17:07 | Emergency (ER) | payer MEDICAID ==
[~2020-03-07] VITALS: Ht 160 cm; Wt 83.5 kg
[~2020-03-07 17:07] MED LIST changes: +ROBAXIN-500MG ORAL
[2020-03-07 17:38] VITALS: BP 138/83
--- NOTE | 2020-03-07 17:40 | NUR ---
ED Nurse Note:pt. came from home with c/o headache , she is A/Ox4 ambulatory, urine was sent to labs but pt. refused blood draw, was notified, CT head done
[2020-03-07 17:42] LABS: APPEARANCE,URINE CLEAR; BILIRUBIN, URINE NEGATIVE (NEGATIVE); GLUCOSE, URINE (UA) 2+ (NEGATIVE); KETONES,URINE 1+ (NEGATIVE); LEUKOCYTE ESTERASE ,URINE 1+ (NEGATIVE); NITRITE,URINE NEGATIVE (NEGATIVE); PH,URINE 5 (4.5-8.0); PROTEIN,URINE 1+ (NEGATIVE); UROBILINOGEN,URINE NORMAL MG/DL (0.0-1.0)
[2020-03-07 17:49] LABS: COLOR,URINE YELLOW
--- NOTE | 2020-03-07 18:22 | Diagnostic Imaging Report ---
EXAM: CT Head Without Intravenous Contrast CLINICAL HISTORY: SYNCOPE TECHNIQUE: Axial computed tomography images of the head/brain without intravenous contrast. CTDI is 53.40 mGy and DLP is 987.80 mGy-cm. One or more of the following dose reduction techniques were used: automated exposure control, adjustment of the mA and/or kV according to patient size, use of iterative reconstruction technique. COMPARISON: 02/19/20 FINDINGS: Brain: Unremarkable. No hemorrhage. No significant white matter disease. No edema. Ventricles: Unremarkable. No ventriculomegaly. Bones/joints: Unremarkable. No acute fracture. Soft tissues: Unremarkable. Sinuses: Unremarkable as visualized. No acute sinusitis. Mastoid air cells: Unremarkable as visualized. No mastoid effusion. IMPRESSION: Unremarkable head/brain CT.
--- NOTE | 2020-03-07 18:23 | Diagnostic Imaging Report ---
EXAM: XR Chest, 1 View CLINICAL HISTORY: PAIN TECHNIQUE: Frontal view of the chest. COMPARISON: 05/23/19 FINDINGS: Lungs: Low lung volumes with bronchovascular crowding. No consolidation, pleural effusion, or pneumothorax. Pleural space: See above. Heart: Unremarkable. No cardiomegaly. Mediastinum: Unremarkable. Bones/joints: No acute abnormality IMPRESSION: 1. Low lung volumes with bronchovascular crowding. 2. Otherwise no acute cardiopulmonary disease. 3. If there is continued concern, recommend frontal and lateral chest radiographs or CT.
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
[2020-03-07] MEDS ORDERED: HYDROcodone/Acetamin 5/325 tab ORAL ONE (18:45)
[2020-03-07] MEDS ORDERED: LORazepam 1mg tab ORAL ONE (19:15)
[2020-03-07] MEDS ORDERED: HYDROCODON-ACE1 EA18 PO (19:24)
[2020-03-07 19:50] VITALS: BP 127/89
--- NOTE | 2020-03-07 19:50 | NUR ---
[facility] DISCHARGE NOTE: Patient is cleared to be discharged per ERMD, pt is aox4, on room air, with stable vital signs. pt was given dc and prescription instructions, pt was able to verbalize understanding, pt id band remove. pt is able to ambulate with steady gait. pt took all belongings. pt stable upon discharge.
--- NOTE | 2020-03-08 19:31 | Cardiology Report ---
APPROVED REPORT EKG Measurement Heart [id number] <Conclusion> Normal sinus rhythm Low voltage QRS Borderline ECG
== END 2020-03-07 19:50 | disposition home or self-care (01) ==
LOC: EMR 17:52
DX: S09.90XA Unspecified injury of head, initial encounter (principal); R51.9 Headache, unspecified; I10 Essential (primary) hypertension; Z88.6 Allergy status to analgesic agent; W22.8XXA Striking against or struck by other objects, initial encounter; Y92.9 Unspecified place or not applicable; E78.00 Pure hypercholesterolemia, unspecified; E11.9 Type 2 diabetes mellitus without complications
CPT/HCPCS: 70450; 71045; 80307; 81003; 93005; Z7502; 99284